=== PATIENT | male | born 1980 | race Caucasian/White ===

== ENCOUNTER → 2023-10-02 | Emergency (ER) | payer BC ==
[~2023-10-02] MED LIST: TORAdol 30 mg Injection IV ONE; Zofran 4 MG/2 ML VIAL IV ONE
--- NOTE | 2023-10-02 17:04 | ERPHSYRPT ---
- History of Present Illness Time Seen by Provider: 10/02/23 17:01 Source: patient Exam Limitations: no limitations Physician History: 43-year-old right-handed dominant male presented in the ER with 3 days history of right upper forearm swelling and redness after he possibly had a spider bite. Patient report earlier it busted with some pus discharge. Patient reports increasing pain and swelling of the forearm and sharp shooting pain radiating to right shoulder moderate to severe and exacerbated with minimal touching. No difficulty movements at the wrist fingers or elbow. Denies any fever or chills. No history of MRSA. Allergies/Adverse Reactions: tramadol Allergy (Intermediate, Unverified 01/03/12 21:38) Home Medications: Ciprofloxacin HCl [Cipro] 500 mg PO BID 01/03/12 [History] Citalopram Hydrobromide [Citalopram HBr] 20 mg PO DAILY 01/03/12 [History] Lomotil 1 tab PO Q6H PRN PRN 01/03/12 [History] Metronidazole 500 mg PO BID 01/03/12 [History] Promethazine HCl 25 mg 25 mg PO Q6H PRN PRN 01/03/12 [History] Hx Tetanus, Diphtheria Vaccination/Date Given: Yes (UNK) Hx Influenza Vaccination/Date Given: No Hx Pneumococcal Vaccination/Date Given: No - Review of Systems Constitutional: No Symptoms Ears, Nose, & Throat: No Symptoms Respiratory: No Symptoms Cardiac: No Symptoms Abdominal/Gastrointestinal: No Symptoms Genitourinary Symptoms: No Symptoms Musculoskeletal: Injury Skin: Cellulitis, Skin Lesions Neurological: No Symptoms Endocrine: No Symptoms Hematologic/Lymphatic: No Symptoms - Past Medical History Pertinent Past Medical History: No - Past Surgical History Past Surgical History: Yes Neuro Surgical History: No Pertinent History Cardiac: No Pertinent History Respiratory: No Pertinent History Gastrointestinal: No Pertinent History Genitourinary: No Pertinent History Musculoskeletal: No Pertinent History Male Surgical History: No Pertinent History Other Surgical History: CYST ON RIBS REMOVED - Social History Smoking Status: Former smoker Exposure to second hand smoke: Yes Drug Use: none Patient Lives Alone: Yes - Nursing Vital Signs Nursing Vital Signs: Initial Vital Signs Temperature 98.4 F 10/02/23 16:52 Pulse Rate 104 H 10/02/23 16:52 Respiratory Rate 18 10/02/23 16:52 Blood Pressure 157/107 10/02/23 16:52 Pain Scale Pain Intensity 10 - Physical Exam General Appearance: no apparent distress Neck Exam: normal inspection, full range of motion Cardiovascular/Respiratory Exam: normal breath sounds, regular rate/rhythm Shoulder Exam: normal inspection, non-tender, no evidence of injury, normal ROM Elbow/Forearm Exam: pain, soft tissue tenderness, swelling (Right forearm proximal aspect small wound with minimal discharge. Diffuse swelling upper forearm. Warm, very tender to touch. Distal neurovascular intact.) Wrist Exam: normal inspection, non-tender, no evidence of injury, normal ROM Hand Exam: normal inspection, non-tender, no evidence of injury, normal ROM Neuro/Tendon Exam: normal sensation, normal motor functions Mental Status Exam: alert, oriented x 3, cooperative Skin Exam: normal color SpO2 Interpretation: normal SpO2: 95 O2 Delivery: Room Air Ordered Tests: Active Orders 24 hr Category Date Time Status IV Insertion STAT Care 10/02/23 17:01 Active Medication Summary Discontinued Medications Generic Name Dose Route Start Last Admin Trade Name Freq PRN Reason Stop Dose Admin Ketorolac Tromethamine 30 mg 10/02/23 17:03 Ketorolac Tromethamine 30 Mg/Ml Inj IV 10/02/23 17:04 STAT ONE Ondansetron HCl 4 mg 10/02/23 17:02 Ondansetron Hcl 4 Mg/2 Ml Vial IV 10/02/23 17:03 STAT ONE - Progress Progress Note: 10/02/23 43-year-old [id number] male is evaluated in the ER for right forehead swelling and possible insect bite with some discharge. Patient is afebrile. I have recommended workup and antibiotics along with symptomatic care but patient walked out of the ER without having any discussion with me. Patient got upset with the fact that RN took wound culture. Counseled pt/family regarding: diagnosis Medical Desision Making - Independent Historian Additional History obtained from: Spouse - Diagnostic Testing Diagnostic test were ordered, analyzed, and reviewed by me: Yes - Departure Departure Disposition: AMA Clinical Impression: Insect bite, Right forearm cellulitis Condition: Stable Critical Care Time: No Referrals: KENDALL ESCOBAR MD [Primary Care Provider] - Follow up/PCP as directed
[2023-10-02 17:19] VITALS: BP 157/107; PULSE 104; RESP 18; TEMP 98.4
[2023-10-02 23:14] VITALS: O2SAT 95
== END | disposition left against medical advice (07) ==
LOC: ED 16:28
DX: S50.861A Insect bite (nonvenomous) of right forearm, initial encounter (principal); L03.113 Cellulitis of right upper limb; Z79.899 Other long term (current) drug therapy
CPT/HCPCS: 99282

== ENCOUNTER 2023-11-23 14:05 | Emergency (ER) | payer OTHER ==
[2023-11-23 14:16] VITALS: TEMP 98
--- NOTE | 2023-11-23 14:35 | ERPHSYRPT ---
- History of Present Illness Time Seen by Provider: 11/23/23 14:35 Source: patient Exam Limitations: no limitations Patient Subjective Stated Complaint: Pt c/o of lungs "burning" for the past month and has not contacted a PCP, pt also states that his legs and feet are swollen Triage Nursing Assessment: Pt brought to the ER by his girlfriend, tachycardic, hypertensive, rates pain as 8/10, talks a lot, states that if you lay him flat that "the veins pop out of his neck and it sufficates him" "feels like his lungs are on fire", pt got tired of feeling this way so he came here for immediate answers, pulses normal, skin n/w/d, doesn't appear to be in any distress Physician History: The patient, with a history of hypertension, presents with a month-long history of chest discomfort and dyspnea. He describes the discomfort as a sensation of veins in the chest 'popping out' and causing significant pain, particularly when lying flat. This is associated with shortness of breath, to the point where he wakes up in the middle of the night gasping for air. The patient also reports recent onset of pedal edema, which started approximately fifty days ago. He denies any liver issues or alcohol consumption. He has been prescribed antihypertensive medication, which he has been taking for a long time. The patient has tried nebulizer treatments and inhalers to alleviate the breathing difficulties, with minimal relief. He expresses concern about a family history of heart disease and lung cancer, given his current symptoms. The patient denies any history of blood clots or use of blood thinners. He also denies any abdominal pain, but mentions a sensation of pressure in the upper abdomen. Timing/Duration: week(s) (4) Activities at Onset: rest Severity of Dyspnea-Max: severe Severity of Dyspnea-Current: severe Possible Cause: no prior episodes Modifying Factors: Improves With: nothing. Worsens With: activity, coughing, exertion, lying down Associated Symptoms: constant, cough, edema, No chest pain/discomfort, No wheezing, No calf pain, No leg swelling, No productive cough Allergies/Adverse Reactions: tramadol Allergy (Intermediate, Verified 11/23/23 14:16) Home Medications: No Reportable Medications [No Reported Medications] 11/23/23 [History] Hx Tetanus, Diphtheria Vaccination/Date Given: Yes (UNK) Hx Influenza Vaccination/Date Given: No Hx Pneumococcal Vaccination/Date Given: No Travel Risk - International Travel Have you traveled outside of the country in past 3 weeks: No - Emerging Infectious Disease Are you exhibiting symptoms associated with any current EIDs: No - Review of Systems All Other Systems: Reviewed and Negative - Past Medical History Pertinent Past Medical History: No - Past Surgical History Past Surgical History: Yes Neuro Surgical History: No Pertinent History Cardiac: No Pertinent History Respiratory: No Pertinent History Gastrointestinal: No Pertinent History Genitourinary: No Pertinent History Musculoskeletal: No Pertinent History Male Surgical History: No Pertinent History Other Surgical History: CYST ON RIBS REMOVED - Social History Smoking Status: Current every day smoker Exposure to second hand smoke: Yes Drug Use: none, marijuana Patient Lives Alone: Yes - Social Determinants of Health Will the patient participate in the screening: Declined to provide - Nursing Vital Signs Nursing Vital Signs: Initial Vital Signs Pulse Rate 117 H 11/23/23 14:07 Respiratory Rate 25 H 11/23/23 14:07 Blood Pressure 150/97 11/23/23 14:07 O2 Sat by Pulse Oximetry 97 11/23/23 14:07 Pain Scale Pain Intensity 8 - Physical Exam General Appearance: mild distress, anxiety, thin Eye Exam: PERRL/EOMI, eyes nml inspection Ears, Nose, Throat Exam: hearing grossly normal, normal ENT inspection Neck Exam: normal inspection, non-tender, supple, full range of motion Respiratory Exam: airway intact, diminished breath sounds, crackles/rales, No respiratory distress Cardiovascular/Chest Exam: normal heart sounds, edema, tachycardia Abdominal/Gastrointestinal Exam: soft, No tenderness, No distention Extremity Exam: normal capillary refill, no calf tenderness, swelling, No deidre's sign Neurologic Exam: alert, oriented x 3, cooperative Skin Exam: normal color, warm, dry SpO2 Interpretation: normal SpO2: 96 O2 Delivery: Room Air - Course Nursing assessment & vital signs reviewed: Yes EKG Interpreted by Me: RATE ([id number]), Sinus Tach, NORMAL AXIS, NORMAL INTERVALS, Other (LVH) - CT Exams Chest CT Interpretation: Tele-radiologist Report, No PE, Other (pleural effusions) Abdomen/Pelvis CT Interpretation: Tele-radiologist Report, Other (mild pericholecystic fluid) Ordered Tests: Medication Summary Discontinued Medications Generic Name Dose Route Start Last Admin Trade Name Freq PRN Reason Stop Dose Admin Clopidogrel Bisulfate 300 mg 11/23/23 16:54 11/23/23 16:58 Clopidogrel Bisulfate 75 Mg Tablet PO 11/23/23 16:55 300 mg STAT ONE Administration Clopidogrel Bisulfate Confirm 11/23/23 16:57 Clopidogrel Bisulfate 75 Mg Tablet Administered 11/23/23 16:58 Dose 300 mg .ROUTE .STK-MED ONE Furosemide 40 mg 11/23/23 15:12 11/23/23 15:55 Furosemide 40 Mg/4 Ml Vial IV 11/23/23 15:13 40 mg STAT ONE Administration Furosemide Confirm 11/23/23 15:53 Furosemide 40 Mg/4 Ml Vial Administered 11/23/23 15:54 Dose 40 mg .ROUTE .STK-MED ONE Lab/Rad Data: Laboratory Result Diagrams 11/23/23 15:45 11/23/23 15:45 Laboratory Results 11/23/23 11/23/23 11/23/23 Range/Units 16:00 15:45 15:45 WBC (4.23-9.07) x10^3/uL RBC (4.63-6.08) x10^6/uL Hgb (13.7-17.5) g/dL Hct (40.1-51.0) % MCV (79.0-92.2) fL MCH (25.7-32.2) pg MCHC (32.3-36.5) g/dL RDW (11.6-14.4) % Plt Count (163-337) x10^3/uL MPV (9.4-12.4) fL Gran % (34.0-67.9) % Immature Gran % (Auto) (0.001-0.429) % Nucleat RBC Rel Count (0.00-0.2) % Eos # (Auto) (0.04-0.54) x10^3/uL Immature Gran # (Auto) (0.001-0.031) x10^3u/L Absolute Lymphs (auto) (1.32-3.57) x10^3/uL Absolute Monos (auto) (0.30-0.82) x10^3/uL Absolute Nucleated RBC (0.00-0.012) x10^3u/L Lymphocytes % (21.8-53.1) % Monocytes % (5.3-12.2) % Eosinophils % (0.8-7.0) % Basophils % (0.2-1.2) % Absolute Granulocytes (1.78-5.38) x10^3/uL Basophils # (0.01-0.08) x10^3/uL pO2/FiO2 Ratio 21.0 % VBG pH 7.40 (7.32-7.42) VBG pCO2 at Pat Temp 43 (42-55) mm/Hg VBG pO2 at Pat Temp 46 H (25-40) mm/Hg VBG HCO3 26.6 (22-28) meq/L VBG O2 Sat (Shira) 78.2 L (95-100) VBG Base Excess 1.5 (-2.0-2.0) VBG Hemoglobin 13.8 VBG Carboxyhemoglobin 3.6 (0.0-6.9) % T HGB POC Potassium 4.1 (3.5-5.1) Sodium (135-145) mmol/L Potassium (3.5-5.1) mmol/L Chloride (98-107) mmol/L Carbon Dioxide (22-30) mmol/L Anion Gap (5-15) MEQ/L BUN (9-20) mg/dL Creatinine (0.66-1.25) mg/dL Estimated GFR ML/MIN Glucose (74-106) mg/dL Calcium (8.4-10.2) mg/dL Total Bilirubin (0.2-1.3) mg/dL AST (17-59) U/L ALT (0-50) U/L Alkaline Phosphatase (38-126) U/L Troponin I 0.054 H* (0.000-0.033) ng/mL NT-Pro-B Natriuret Pep 6860 (<300) pg/mL Serum Total Protein (6.3-8.2) g/dL Albumin (3.5-5.0) g/dL TSH 3rd Generation 2.210 (0.470-4.680) mIU/L 11/23/23 11/23/23 Range/Units 15:45 15:45 WBC 10.6 H (4.23-9.07) x10^3/uL RBC 4.26 L (4.63-6.08) x10^6/uL Hgb 13.4 L (13.7-17.5) g/dL Hct 40.1 (40.1-51.0) % MCV 94.1 H (79.0-92.2) fL MCH 31.5 (25.7-32.2) pg MCHC 33.4 (32.3-36.5) g/dL RDW 13.9 (11.6-14.4) % Plt Count 236 (163-337) x10^3/uL MPV 11.3 (9.4-12.4) fL Gran % 72.5 H (34.0-67.9) % Immature Gran % (Auto) 0.3 (0.001-0.429) % Nucleat RBC Rel Count 0.0 (0.00-0.2) % Eos # (Auto) 0.11 (0.04-0.54) x10^3/uL Immature Gran # (Auto) 0.03 (0.001-0.031) x10^3u/L Absolute Lymphs (auto) 1.91 (1.32-3.57) x10^3/uL Absolute Monos (auto) 0.82 (0.30-0.82) x10^3/uL Absolute Nucleated RBC 0.00 (0.00-0.012) x10^3u/L Lymphocytes % 18.0 L (21.8-53.1) % Monocytes % 7.7 (5.3-12.2) % Eosinophils % 1.0 (0.8-7.0) % Basophils % 0.5 (0.2-1.2) % Absolute Granulocytes 7.68 H (1.78-5.38) x10^3/uL Basophils # 0.05 (0.01-0.08) x10^3/uL pO2/FiO2 Ratio % VBG pH (7.32-7.42) VBG pCO2 at Pat Temp (42-55) mm/Hg VBG pO2 at Pat Temp (25-40) mm/Hg VBG HCO3 (22-28) meq/L VBG O2 Sat (Shira) (95-100) VBG Base Excess (-2.0-2.0) VBG Hemoglobin VBG Carboxyhemoglobin (0.0-6.9) % T HGB POC Potassium (3.5-5.1) Sodium 139 (135-145) mmol/L Potassium 4.1 (3.5-5.1) mmol/L Chloride 104 (98-107) mmol/L Carbon Dioxide 27 (22-30) mmol/L Anion Gap 11.8 (5-15) MEQ/L BUN 19 (9-20) mg/dL Creatinine 0.97 (0.66-1.25) mg/dL Estimated GFR 98.1 ML/MIN Glucose 119 H (74-106) mg/dL Calcium 9.0 (8.4-10.2) mg/dL Total Bilirubin 0.50 (0.2-1.3) mg/dL AST 48 (17-59) U/L ALT 59 H (0-50) U/L Alkaline Phosphatase 75 (38-126) U/L Troponin I (0.000-0.033) ng/mL NT-Pro-B Natriuret Pep (<300) pg/mL Serum Total Protein 6.1 L (6.3-8.2) g/dL Albumin 3.5 (3.5-5.0) g/dL TSH 3rd Generation (0.470-4.680) mIU/L - Progress Progress: improved Air Movement: fair Progress Note: Patient given IV lasix after evaluation due to concern for CHF exacerbation. Labs showed BNP 6860, ALT 59 and mildly elevated initial Troponin. Patient given 300mg Plavix. CT chest/abd/pelvis were pending and patient became irritated that results weren't available 30 minutes after scan so left AMA/eloped without discussing the risks involved. Blood Culture(s) Obtained: No Antibiotics given: No Counseled pt/family regarding: lab results, diagnosis, need for follow-up Medical Desision Making - Diagnostic Testing Diagnostic test were ordered, analyzed, and reviewed by me: Yes Radiological Interpretation: Interpreted by me, Reviewed by me, Teleradiologist Report - Risk of complications The pt has a mod risk of morbidity or mortality based on: Need for prescription drug management - Departure Departure Disposition: AMA Clinical Impression: CHF exacerbation, Elevated troponin, Elevated ALT measurement, Pleural effusion, Shortness of breath Condition: Stable Critical Care Time: No Referrals: DOCTOR,NO FAMILY [Primary Care Provider] - Follow up/PCP as directed Instructions: Heart Failure, Shortness of Breath (Dyspnea) (DC)
[2023-11-23 15:52] LABS: Absolute Neutrophil Ct (ANC) 7.68 x10^3/uL (1.78-5.38); BASOPHIL % 0.5 % (0.2-1.2); Basophil (Absolute #) 0.05 x10^3/uL (0.01-0.08); Eosinophil (Absolute #) 0.11 x10^3/uL (0.04-0.54); Hematocrit 40.1 % (40.1-51.0); Hemoglobin 13.4 g/dL (13.7-17.5); IMMATURE GRAN # 0.03 x10^3u/L (0.001-0.031); IMMATURE GRAN % 0.3 % (0.001-0.429); Lymphocyte (Absolute #) 1.91 x10^3/uL (1.32-3.57); Mean Cell Volume 94.1 fL (79.0-92.2); Mean Corpuscular Hemoglobin 31.5 pg (25.7-32.2); Mean Corpuscular Hgb Concent. 33.4 g/dL (32.3-36.5); Mean Platelet Volume 11.3 fL (9.4-12.4); Monocyte (Absolute #) 0.82 x10^3/uL (0.30-0.82); Monocytes % 7.7 % (5.3-12.2); Neutrophil % 72.5 % (34.0-67.9); Platelet Count 236 x10^3/uL (163-337); Red Blood Count 4.26 x10^6/uL (4.63-6.08); Red Cell Distribution Width 13.9 % (11.6-14.4); White Blood Count 10.6 x10^3/uL (4.23-9.07)
[2023-11-23] MEDS ORDERED: Lasix 40 MG/4 ML ONE (15:53)
[2023-11-23] MEDS: Lasix 40 MG/4 ML IV ONE (15:55)
[2023-11-23 16:05] LABS: ALBUMIN 3.5 g/dL (3.5-5.0); ANION GAP 11.8 MEQ/L (5-15); BILIRUBIN,TOTAL 0.5 mg/dL (0.2-1.3); Creatinine 1 0.97 mg/dL (0.66-1.25); EST GLOMERULAR FILTRATION RATE 98.1 ML/MIN; Potassium 4.1 mmol/L (3.5-5.1); Total Protein 6.1 g/dL (6.3-8.2)
[2023-11-23 16:07] LABS: VBG BASE EXCESS 1.5 (-2.0-2.0); VBG CARBOXYHEMOGLOBIN 3.6 % T HGB (0.0-6.9); VBG HCO3- 26.6 meq/L (22-28); VBG HEMOGLOBIN 13.8; VBG O2 SATURATION 78.2 (95-100); VBG POTASSIUM 4.1 (3.5-5.1); VBG pH 7.4 (7.32-7.42)
[2023-11-23 16:36] LABS: TSH, 3RD Generation 2.21 mIU/L (0.470-4.680)
[2023-11-23 16:47] VITALS: PULSE 117
[2023-11-23] MEDS ORDERED: PLAVIX Tablet ONE (16:57)
[2023-11-23] MEDS: PLAVIX Tablet PO ONE (16:58)
[2023-11-23 17:07] VITALS: BP 158/123; RESP 28
[2023-11-23 18:36] VITALS: O2SAT 96
--- NOTE | 2023-11-23 18:36 | XRAY ---
CLINICAL HISTORY: sob , cp COMPARISON: None. TECHNIQUE: Contiguous 3.[address] angiographic images of the chest were acquired with the administration of intravenous contrast (80cc Isovue 370). Coronal and sagittal reconstructions were obtained. 20 cc Multihance was administered for post-contrast images. One of these 3D techniques was utilized: Maximum Intensity Pixel (MIP), 3D Reconstructed Images, Volume Rendered Images, Surface Shaded Rendering. One of the following dose reduction techniques were utilized for this exam: Automated exposure control, adjustment of the mA and/or kV according to patient size, and use of iterative reconstruction. FINDINGS: Aorta: The thoracic aorta is normal in caliber. No evidence of aneurysm, dissection, or significant atherosclerotic changes. Aortic arch and descending thoracic aorta are unremarkable. Pulmonary Arteries: Pulmonary arteries are normal in size and opacification. No evidence of pulmonary embolism. No stenosis or filling defects. Superior Vena Cava (SVC) and Inferior Vena Cava (IVC): Normal opacification and caliber. No evidence of thrombus or obstruction. Coronary Arteries: Coronary arteries are well-opacified. No significant stenosis or atherosclerotic changes. Mediastinum: No mediastinal mass or lymphadenopathy. Normal appearance of the thymus. Heart: Mild cardiomegaly No pericardial effusion. Lungs: No evidence of consolidation, nodules, or masses. Reticular markings seen mainly in right lower lobe showing interlobular septal thickening. Atelectatic changes seen in right middle and lower lobes. Bilateral mild pleural effusion, more on right side. Bones: Mild degenerative changes seen in the visualized spine No fractures or lytic/sclerotic lesions of the visualized bony structures. Normal alignment and bone density. Soft Tissues: Normal appearance of the visualized soft tissues. No abnormal masses or fluid collections. IMPRESSION: 1. No evidence of pulmonary embolism 2. No evidence of significant vascular abnormalities. 3. No pulmonary mass, nodule, major collapse or consolidative changes 4. Mild cardiomegaly showing basal congestive changes. 5. Bilateral mild to moderate pleural effusion, more on right side 6. Clinical correlation is suggested Electronically Signed by: Shahram Rahman MD. (11/23/2023 18:31:50 EDT)
--- NOTE | 2023-11-23 18:43 | XRAY ---
CLINICAL HISTORY: abd pain COMPARISON: None. TECHNIQUE: Contrast-enhanced CT of the abdomen and pelvis was performed, with the following protocol: axial images with, and reconstructed coronal and sagittal images. Intravenous contrast (80ml Isovue 370) was administered. One of the following dose reduction techniques was utilized for this exam: Automated exposure control, adjustment of the mA and/or kV according to patient size, and use of iterative reconstruction. FINDINGS: Abdomen: Liver: The liver is mildly enlarged in size measuring about 17.8 cm in the craniocaudal axis showed decreased attenuation compatible with fatty infiltration. There is 8 mm high-density attenuation structure seen in the right lobe of liver, possible foreign body versus calcified granuloma. No intrahepatic biliary dilatation Gallbladder and Biliary System: The gallbladder is partially distended, no definite calculi noted inside. Mild amount of pericholecystic fluid seen The common bile duct is normal in caliber without dilation. Pancreas: Pancreatic head, body, and tail are visualized and appear normal in size and density. No pancreatic masses or calcifications were noted. The pancreatic duct is not dilated. Spleen: Normal in size, shape, and density. No splenic lesions or masses were identified. Kidneys and Adrenal Glands: Both kidneys are normal in size, shape, and position. Cortical thickness is within normal limits. No renal calculi or hydronephrosis. Adrenal glands are unremarkable with no evidence of masses or hyperplasia. Pelvis: Urinary Bladder: Overdistended, Normal in contour and wall thickness. No intraluminal lesions identified. Prostate: Normal in size and contour. No focal lesions or masses identified. Seminal Vesicles: Normal in size and appearance. No abnormalities noted. Rectum and Sigmoid Colon: Normal wall thickness and no evidence of mass. Peritoneal and Retroperitoneal Structures: No free fluid or abnormal fluid collections were identified within the pelvis. No lymphadenopathy was noted. Bowel: The visualized bowel loops are normal in caliber and appearance. No evidence of bowel obstruction or wall thickening. Normal-appearing appendix Bones and Soft Tissues: Pelvic bones and soft tissues are unremarkable. No fractures or abnormal masses were identified. IMPRESSION: 1. No acute bowel pathology. 2. Mild hepatomegaly, fatty infiltration of liver. 3. Mild amount of pericholecystic fluid seen. 4. Rest of the visualized abdominal structures appear unremarkable. 5. Distended urinary bladder. 6. Clinical correlation is suggested Electronically Signed by: Shahram Rahman MD. (11/23/2023 18:39:31 EDT)
== END 2023-11-23 18:05 | disposition left against medical advice (07) ==
LOC: ED 14:05
DX: I50.9 Heart failure, unspecified (principal); R77.8 Other specified abnormalities of plasma proteins; R74.01 Elevation of levels of liver transaminase levels; J90 Pleural effusion, not elsewhere classified; R06.02 Shortness of breath; R07.9 Chest pain, unspecified; Z72.0 Tobacco use
CPT/HCPCS: 36000; 36415; 71260; 74177; 80053; 82805; 83880; 84443; 84484; 85025; 93005; 96374; 99284; J1940; A9270-GY